=== PATIENT | male | born 1990 | race Caucasian/White ===

== ENCOUNTER → 2017-06-18 | Outpatient (CLI) | payer BC, OTHER ==
[~2017-06-18] MED LIST: HYDR1TAB94 PO
[2017-06-20 10:19] LABS: Source Urine
== END | disposition home or self-care (01) ==
LOC: LAB SHORT 19:22 → LAB EV 19:22
PROVIDERS: Physician Assistant Medical
DX: N45.1 Epididymitis (principal)
CPT/HCPCS: 87491; 87591; 87661